=== PATIENT | male | born 1955 | race Caucasian/White ===

== ENCOUNTER 2017-06-02 21:30 | Inpatient (IN) ==
[2017-06-02] MEDS ORDERED: NS 1,000 ML IV ONE (21:57)
[2017-06-02] MEDS ORDERED: KETOROLAC 30 MG/ML INJECTION IVP ONE (21:57)
[2017-06-02] MEDS ORDERED: ONDANSETRON 4 MG/2 ML INJECTION IVP ONE (21:57)
--- NOTE | 2017-06-02 22:01 | Emergency Department Report ---
General Adult HPI - General Chief complaint: Fever Stated complaint: Fever/Keep Falling Asleep Time Seen by Provider: 06/02/17 21:32 Source: patient, family Mode of arrival: ambulatory Limitations: no limitations - History of Present Illness HPI narrative: Patient has had 6 days of on and off fevers up to 101 at home, diffuse headache , waxing and waning nausea, and generalized low back pain. Patient has also noticed a reddish/or injection discoloration to the urine initially, but now appears brown. Seen by his primary provider at the clinic, and although his initial CBC, BMP, and UA were essentially normal, patient was started on Levaquin but was uncertain why he was started on this. Patient has not taken any medication for fever or pain, nor has he had anything for nausea. Tonight the patient's symptoms seemed worse, so he came to the ER. Patient has a known history of congestive heart failure, is on diuretics, has atrial fibrillation, and is scheduled for a pacemaker placement sometime in the coming months. - Related Data Home Medications Medication Instructions Recorded Confirmed Budesonide/Formoterol Fumarate 6 gm IH BID #0 04/28/10 (Symbicort 160/4.5 Mcg Inhaler) Ipratropium/Albuterol Sulfate 90 mcg IH QID #0 NS 04/28/10 (Combivent Inhaler) Albuterol Sulfate [Ventolin Hfa] 1 puff ORAL INH Q4H PRN #0 inhaler 12/09/16 Aspirin [Aspir 81] 1 tab PO DAILY #30 tab 12/09/16 Ipratropium/Albuterol Sulfate 2 puff PO BID #0 inhaler 12/09/16 [Combivent Respimat Inhal [place]] duloxetine 60 mg capsule,delayed PO 30 Days 04/13/17 release fluticasone 50 mcg/actuation nasal 2 spray INTRANASAL BID 04/17/17 spray,suspension lisinopril 20 mg tablet 20 mg PO DAILY #0 tab 04/17/17 albuterol sulfate HFA 90 2 puff INH Q4H g 05/28/17 mcg/actuation aerosol inhaler aspirin 81 mg tablet,delayed 81 mg PO DAILY tab 05/28/17 release budesonide-formoterol HFA 80 2 inh INH BID 05/28/17 mcg-4.5 mcg/actuation aerosol inhaler carvedilol 3.125 mg tablet 3.125 mg PO BID 05/28/17 celecoxib 200 mg capsule 200 mg PO BID 30 Days 05/28/17 duloxetine 60 mg capsule,delayed PO 30 Days 05/28/17 release furosemide 40 mg tablet 40 mg PO BID 30 Days 05/28/17 linagliptin 5 mg tablet 5 mg PO DAILY tab 05/28/17 lisinopril 20 mg tablet 20 mg PO DAILY 30 Days 05/28/17 metformin 500 mg tablet 500 mg PO DAILY 30 Days 05/28/17 methocarbamol 750 mg tablet 750 mg PO DAILY 30 Days 05/28/17 potassium chloride ER 20 mEq PO 30 Days 05/28/17 tablet,extended release(part/cryst) rivaroxaban 20 mg tablet 20 mg PO DAILY 30 Days 05/28/17 Previous Rx's Medication Instructions Recorded Flecainide Acetate 50 mg PO Q12HR 30 Days 12/10/16 furosemide 40 mg tablet 40 mg PO BID #180 tab 04/15/17 metformin 500 mg tablet 500 mg PO BID #180 tab 04/17/17 methocarbamol 750 mg tablet 750 mg PO TID #90 tab 04/17/17 linagliptin 5 mg tablet 5 mg PO QAM #30 tab 04/29/17 potassium chloride ER 20 mEq 20 meq PO BID #180 tab 05/21/17 tablet,extended release rivaroxaban 20 mg tablet 20 mg PO DAILY #30 tab 05/21/17 levofloxacin 500 mg tablet 500 mg PO Q24H 10 Days 05/28/17 Allergies Allergy/AdvReac Type Severity Reaction Status Date / Time Penicillins Allergy Unknown Verified 06/02/17 21:46 cephalexin [From Keflex] Allergy Verified 05/28/17 14:35 Review of Systems All systems: reviewed and negative except as stated PFSH Patient Stated Medical History Cardiac Arrhythmia Yes: HX OF A.FIB Hypertension Yes Chronic Obstructive Pulmonary Yes Disease (COPD) Diabetes Mellitus Type 2 Yes: [facility] Medical History (Last Updated 06/01/17 @ 12:09 by Angela Ceron) Atrial fibrillation (Chronic Medical ~2011) Diabetes (Chronic Medical) Diabetes mellitus (Chronic Medical ~2006) Morbid obesity with BMI of 50.0-59.9, adult (Chronic Medical) Obesity (Chronic Medical) Congestive heart failure, ejection fraction 30% Surgical History: L2-L5 decompression [id number] Family History: Family History Mother , age 71 Lung cancer Father Diabetes - Social History Smoking status: Former smoker Physical Exam - Limitations Limitations: no limitations - General General appearance: alert - Normal Exams: Head:: Normocephalic without trauma Eyes:: Pupils are PERRLA w/ EOMI, No scleral icterus, irritation, or foreign bodies noted ENMT:: No facial trauma, nasal exudates, pharyngeal erythema, or exudates are noted Neck:: Full range of motion, without adenopathy, JVD, bruits or thyromegaly Cardiovascular:: Regular rate and rhythm, without murmur or gallop, Pulses 2+ all extremities, capillary refill, <2 seconds all extremities Abdomen:: Bowel sounds positive, soft, non-tender, non-distended, no hepatosplenomegaly, masses or bruits noted Musculoskeletal:: No tenderness, or deformity noted, good range of motion, all extremities Integumentary:: No rashes, hives, or bruising noted, hair and nails, without abnormality Neurological:: Patient is alert, and oriented, cranial nerves, motor/sensory/ cerebellar, exams w/o gross deficits, to observation Psychiatric:: Patient exhibits, appropriate attention, emotion and affect - Chest Chest inspection: Present: normal inspection, symmetric chest wall rise. Absent : tenderness, abscess - Respiratory Respiratory exam: Present: wheezes. Absent: normal lung sounds bilaterally ( wheezes bilaterally), respiratory distress - Abdominal Exam Abdominal exam: Present: soft. Absent: distention, tenderness, guarding, rebound - Other Other exam information: Patient had moderate 2-3+ pitting edema of lower extremities, which she says is chronic. Patient also has one plus pitting edema of the abdominal pannus. Again patient says that these findings are chronic Course Vital Signs Temperature 100.4 F 06/02/17 21:36 Pulse Rate 85 06/02/17 21:36 Respiratory Rate 24 06/02/17 21:36 Blood Pressure 149/78 H 06/02/17 21:36 Pulse Oximetry 95 06/02/17 21:36 Temperature 100.4 F 06/02/17 21:36 Pulse Rate 85 06/02/17 23:13 Respiratory Rate 18 06/02/17 23:13 Blood Pressure 95/51 06/02/17 23:13 Pulse Oximetry 91 06/02/17 23:13 Medical Decision Making - MDM Narrative Medical decision making narrative: UA - essentially normal CBC - mildly elevated white blood cell count with 9% bandemia, elevated CMP - normal Lactate - elevated 3.1 ProCalcitonin - normal Patient is given 1 L normal saline IV fluid bolus, Toradol 30 mg, and Zofran 4 mg IV - feeling better Chest x-ray does not show any clear source of infection Again patient has completely normal neurologic exam with no meningeal signs whatsoever. Patient is discussed with Dr. Hitesh Gonzales, we will start the patient on sepsis protocol with 2 g Rocephin in the ER, blood cultures are drawn, and patient will be admitted to medical telemetry - Lab Data Result diagrams: 06/02/17 22:10 06/02/17 22:10 Lab Results 06/02/17 06/02/17 06/02/17 Range/Units 22:02 22:10 22:10 WBC 8.2 (4.5-11.0) T/MM3 RBC 3.96 L (4.50-5.90) M/MM3 Hgb 12.4 L (13.5-17.5) GM/DL Hct 37.4 L (41-53) % MCV 94.4 (80-100) UM3 MCH 31.3 (26-34) UUG MCHC 33.2 (31-37) GM/DL RDW Std Deviation 50.3 H (36.9-50.2) FL Plt Count 185 (130-400) T/MM3 MPV 11.0 (9.4-12.4) UM3 Immature Gran % (Auto) Not performed Neut % (Auto) Not performed Lymph % (Auto) Not performed [place] % (Auto) Not performed Eos % (Auto) Not performed Baso % (Auto) Not performed Neut # Not performed Lymph # Not performed [place] # Not performed Eos # Not performed Baso # Not performed Abs Immat Gran (auto) Not performed Neutrophils % (Manual) 41.0 (33-66) % Band Neutrophils % 9.0 H (0-6) % Lymphocytes % (Manual) 23.0 (23-45) % Reactive Lymphs % 5.0 H (0-0) % Monocytes % (Manual) 18.0 H (0-9.0) % Eosinophils % (Manual) 1.0 (0-4) % Metamyelocytes % 3.0 H (0-0) % Neutrophils # (Manual) 3.4 (1.8-7.7) T/MM3 Band Neutrophils # 0.7 T/MM3 Lymphocytes # (Manual) 1.9 (1-4.8) T/MM3 Abs React Lymphs (Man) 0.4 H (0-0) T/MM3 Monocytes # (Manual) 1.5 H (0-0.8) T/MM3 Eosinophils # (Manual) 0.1 (0-0.5) T/MM3 Metamyelocytes # 0.2 T/MM3 Anisocytosis 1+ RBC Morph Comment Abnormal Turbidity < 20 (0-20) Sodium 136 (134-144) MEQ/L Potassium 4.4 (3.6-5) MEQ/L Chloride 100 (98-107) MEQ/L Carbon Dioxide 25 (22-30) MEQ/L Anion Gap 11 (5-15) MEQ/L BUN 16.0 (9-20) MG/DL Creatinine 0.9 (0.8-1.5) MG/DL GFR Calculation 86 BUN/Creatinine Ratio 18 (6-26) RATIO Glucose 187 H (75-110) MG/DL Calculated Osmolality 268 (261-280) MOSM/KG Calcium 9.0 (8.4-10.2) MG/DL Total Bilirubin 1.20 (0.20-1.30) MG/DL Conjugated Bilirubin 0.00 (0.00-0.30) MG/DL Unconjugated Bilirubin 0.70 (0.00-11.10) MG/DL Icterus Index < 2 (0-7) AST 57 (17-59) U/L ALT 66 (21-72) U/L Alkaline Phosphatase 61 (38-126) U/L B-Natriuretic Peptide 702 H (0-175) pg/mL Total Protein 6.6 (6.3-8.2) G/DL Albumin 3.7 (3.5-5.0) G/DL Globulin 2.9 (2.4-3.6) G/DL Albumin/Globulin Ratio 1.3 (1.1-2.2) RATIO Plasma Lactate 3.1 H (0.6-2.2) MMOL/L Procalcitonin NG/ML Specimen Hemolysis < 15 (0-25) Ur Collection Type Not provided Urine Color Yellow (YELLOW) Urine Clarity Clear Urine pH 6.0 (5.0-8.0) Ur Specific [place] 1.020 (1.015-1.025) Urine Protein Trace A (NEGATIVE) Urine Glucose (UA) Negative (NEGATIVE) Urine Ketones Negative (NEGATIVE) Urine Occult Blood Negative (NEGATIVE) Urine Nitrate Negative (NEGATIVE) Urine Bilirubin Negative (NEGATIVE) Urine Urobilinogen 1.0 (NORMAL) EU/DL Ur Leukocyte Esterase Negative (NEGATIVE) Urine RBC 0-1 (0-3) /HPF Urine WBC 1-3 (0-5) /HPF Ur Squamous Epith Cells 5-10 Urine Bacteria 1+ H (NEGATIVE) Hyaline Casts 0-1 /LPF Ur Culture Indicated? Cult not indicated 06/02/17 Range/Units 22:10 WBC (4.5-11.0) T/MM3 RBC (4.50-5.90) M/MM3 Hgb (13.5-17.5) GM/DL Hct (41-53) % MCV (80-100) UM3 MCH (26-34) UUG MCHC (31-37) GM/DL RDW Std Deviation (36.9-50.2) FL Plt Count (130-400) T/MM3 MPV (9.4-12.4) UM3 Immature Gran % (Auto) Neut % (Auto) Lymph % (Auto) [place] % (Auto) Eos % (Auto) Baso % (Auto) Neut # Lymph # [place] # Eos # Baso # Abs Immat Gran (auto) Neutrophils % (Manual) (33-66) % Band Neutrophils % (0-6) % Lymphocytes % (Manual) (23-45) % Reactive Lymphs % (0-0) % Monocytes % (Manual) (0-9.0) % Eosinophils % (Manual) (0-4) % Metamyelocytes % (0-0) % Neutrophils # (Manual) (1.8-7.7) T/MM3 Band Neutrophils # T/MM3 Lymphocytes # (Manual) (1-4.8) T/MM3 Abs React Lymphs (Man) (0-0) T/MM3 Monocytes # (Manual) (0-0.8) T/MM3 Eosinophils # (Manual) (0-0.5) T/MM3 Metamyelocytes # T/MM3 Anisocytosis RBC Morph Comment Turbidity (0-20) Sodium (134-144) MEQ/L Potassium (3.6-5) MEQ/L Chloride (98-107) MEQ/L Carbon Dioxide (22-30) MEQ/L Anion Gap (5-15) MEQ/L BUN (9-20) MG/DL Creatinine (0.8-1.5) MG/DL GFR Calculation BUN/Creatinine Ratio (6-26) RATIO Glucose (75-110) MG/DL Calculated Osmolality (261-280) MOSM/KG Calcium (8.4-10.2) MG/DL Total Bilirubin (0.20-1.30) MG/DL Conjugated Bilirubin (0.00-0.30) MG/DL Unconjugated Bilirubin (0.00-11.10) MG/DL Icterus Index (0-7) AST (17-59) U/L ALT (21-72) U/L Alkaline Phosphatase (38-126) U/L B-Natriuretic Peptide (0-175) pg/mL Total Protein (6.3-8.2) G/DL Albumin (3.5-5.0) G/DL Globulin (2.4-3.6) G/DL Albumin/Globulin Ratio (1.1-2.2) RATIO Plasma Lactate (0.6-2.2) MMOL/L Procalcitonin 0.27 NG/ML Specimen Hemolysis (0-25) Ur Collection Type Urine Color (YELLOW) Urine Clarity Urine pH (5.0-8.0) Ur Specific [place] (1.015-1.025) Urine Protein (NEGATIVE) Urine Glucose (UA) (NEGATIVE) Urine Ketones (NEGATIVE) Urine Occult Blood (NEGATIVE) Urine Nitrate (NEGATIVE) Urine Bilirubin (NEGATIVE) Urine Urobilinogen (NORMAL) EU/DL Ur Leukocyte Esterase (NEGATIVE) Urine RBC (0-3) /HPF Urine WBC (0-5) /HPF Ur Squamous Epith Cells Urine Bacteria (NEGATIVE) Hyaline Casts /LPF Ur Culture Indicated? Disposition Clinical Impression: Sepsis Qualifiers: Sepsis type: sepsis due to unspecified organism Qualified Code(s): A41.9 - Sepsis, unspecified organism [place] [facility] [place]: Improved Prescriptions: No Action Ipratropium/Albuterol Sulfate [Combivent Respimat Inhal [place]] 2 puff PO BID #0 inhaler Albuterol Sulfate [Ventolin Hfa] 1 puff ORAL INH Q4H PRN #0 inhaler PRN Reason: SHORTNESS OF AIR/WHEEZING Budesonide/Formoterol Fumarate (Symbicort 160/4.5 Mcg Inhaler) 6 gm IH BID # 0 Ipratropium/Albuterol Sulfate (Combivent Inhaler) 90 mcg IH QID #0 NS Aspirin [Aspir 81] 1 tab PO DAILY #30 tab Flecainide Acetate 50 mg PO Q12HR 30 Days linagliptin 5 mg tablet 5 mg PO QAM #30 tab potassium chloride ER 20 mEq tablet,extended release 20 meq PO BID #180 tab rivaroxaban 20 mg tablet 20 mg PO DAILY 30 Days potassium chloride ER 20 mEq tablet,extended release(part/cryst) PO 30 Days furosemide 40 mg tablet 40 mg PO BID 30 Days metformin 500 mg tablet 500 mg PO DAILY 30 Days lisinopril 20 mg tablet 20 mg PO DAILY 30 Days aspirin 81 mg tablet,delayed release 81 mg PO DAILY tab methocarbamol 750 mg tablet 750 mg PO DAILY 30 Days duloxetine 60 mg capsule,delayed release PO 30 Days albuterol sulfate HFA 90 mcg/actuation aerosol inhaler 2 puff INH Q4H g linagliptin 5 mg tablet 5 mg PO DAILY tab budesonide-formoterol HFA 80 mcg-4.5 mcg/actuation aerosol inhaler 2 inh INH BID rivaroxaban 20 mg tablet 20 mg PO DAILY #30 tab celecoxib 200 mg capsule 200 mg PO BID 30 Days carvedilol 3.125 mg tablet 3.125 mg PO BID levofloxacin 500 mg tablet 500 mg PO Q24H 10 Days Referrals: Stacy Isbell PA [Family Provider] - - Seen By: physician
[2017-06-02] MEDS: SALINE FLUSH 10ml SYRINGE IVF PRN (22:14)
[2017-06-02] MEDS ORDERED: CEFTRIAXONE 2 GM in NS 100 ML IV ONE (23:26)
[2017-06-03] MEDS ORDERED: AZTREONAM IV SCH (00:19)
[2017-06-03] MEDS ORDERED: ONDANSETRON 4 MG/2 ML INJECTION IVP PRN (00:19)
[2017-06-03] MEDS ORDERED: ACETAMINOPHEN 325 MG TABLET PO PRN (00:19)
[2017-06-03] MEDS ORDERED: CEFTRIAXONE 2 GM in NS 100 ML IV SCH (00:19)
[2017-06-03] MEDS ORDERED: HYDROCODONE/APAP 5mg/325mg TABLET PO PRN (00:19)
[2017-06-03] MEDS ORDERED: HYDROMORPHONE 2 MG/ML INJECTION IVP PRN (00:19)
[2017-06-03] MEDS ORDERED: NS IV SCH (00:19)
--- NOTE | 2017-06-03 00:32 | History & Physical Report ---
<Hitesh Gonzales - Last Filed: 06/03/17 00:28> History of Present Illness Date: 06/03/17 Chief complaint: i don't feel well HPI: This is a 61 y/o male who has a history of DM 2 and COPD. The patient had onset this past of headache, fever, chills and sweats with weakness. He presented to his PCP office and referred to the ED where his workup was non specific. he was started on Levaquin and discharged back to home. Since the past 5 days the patient continues to be weak with intermittent headache , fever, chills and sweats. The patient has not improved with Levaquin therapy. The patient presents to the ED where he continues with a leukocytosis and now bandemia. The patient's LA is elevated. CXR is unremarkable for acute illness and his ROS would inform not much pulmonary complatins. The patient does describe some dysuria for the past 5 days but UA in the ED was mostly c/w contaminated urine. The patient denies any skin rashes or area of break down. The patient denies change in vision, no ear pain, no congestion, no sores in his mouth, no sore throat, The pateint has an occasional non productive cough. The pateint has nausea without emesis. He denies abdoemn pain, He has some constipation, He has no other signs of symptoms to give clue to his ongoing infectious process. Because of DINERO and fever he will be admitted and started on SAILING OFFICER antibitoics. With his history of atrial fib he is anticoagulated? He is not a candidate for an immediate LP. see below. Review of Systems Review of systems: very carefully outlilned in HPI and otherwise negative. [facility] Medical History (Last Updated 06/02/17 @ 23:31 by Trever Beck MD) Atrial fibrillation (Chronic Medical ~2011) Diabetes (Chronic Medical) Diabetes mellitus (Chronic Medical ~2006) Morbid obesity with BMI of 50.0-59.9, adult (Chronic Medical) Obesity (Chronic Medical) Surgical History: L2-L5 decompression [id number] Family History: Family History Mother , age 71 Lung cancer Father Diabetes - Social History Smoking status: Former smoker Substance use type: does not use Alcohol intake frequency: a few times a week Housing: house Household members: spouse Current occupational status: employed Current occupational exposures/hazards: No Medications Home Medications Medication Instructions Recorded Confirmed Type Ipratropium/Albuterol Sulfate 2 puff PO BID #0 inhaler 12/09/16 06/03/17 History [Combivent Respimat Inhal Central] albuterol sulfate HFA 90 2 puff INH Q4H g 05/28/17 06/03/17 History mcg/actuation aerosol inhaler aspirin 81 mg tablet,delayed 81 mg PO DAILY tab 05/28/17 06/03/17 History release budesonide-formoterol HFA 80 2 inh INH BID 05/28/17 06/03/17 History mcg-4.5 mcg/actuation aerosol inhaler celecoxib 200 mg capsule 200 mg PO BID 30 Days 05/28/17 06/03/17 History duloxetine 60 mg capsule,delayed 60 mg PO DAILY 30 Days 05/28/17 06/03/17 History release furosemide 40 mg tablet 40 mg PO BID 30 Days 05/28/17 06/03/17 History linagliptin 5 mg tablet 5 mg PO DAILY tab 05/28/17 06/03/17 History lisinopril 20 mg tablet 20 mg PO DAILY 30 Days 05/28/17 06/03/17 History metformin 500 mg tablet 500 mg PO DAILY 30 Days 05/28/17 06/03/17 History methocarbamol 750 mg tablet 750 mg PO DAILY 30 Days 05/28/17 06/03/17 History potassium chloride ER 20 mEq 20 meq PO BID 30 Days 05/28/17 06/03/17 History tablet,extended release(part/cryst) rivaroxaban 20 mg tablet 20 mg PO DAILY 30 Days 05/28/17 06/03/17 History Allergies Allergy/AdvReac Type Severity Reaction Status Date / Time Penicillins Allergy Unknown Verified 06/03/17 01:34 cephalexin [From Keflex] Allergy Verified 06/03/17 01:34 Exam Vital Signs: Temperature 98.8 F 06/03/17 00:19 Pulse Rate 88 06/03/17 00:19 Respiratory Rate 20 06/03/17 00:19 Blood Pressure 118/61 06/03/17 00:19 Pulse Oximetry 91 06/03/17 00:19 Oxygen Delivery Method Room Air Telemetry Rhythm: Sinus Rhythm Height: 1.88 m Weight: 184.1 kg Comments: well developed, well nourished male mild to mod obese in mild distress, alert and oriented x 4 - Constitutional Present: mild distress, well nourished, well developed, obese, cooperative - Routine HEENT Exam Head: Present: normocephalic, atraumatic Eye: Present: EOMI, conjunctivae pink. Absent: scleral injection ENT: Present: mucous membranes moist - Routine Neck Exam Present: supple, full ROM Comments: patient observed to move head without any evidence of nuchal rigidity - Routine Respiratory Exam Present: CTA bilaterally - Routine Cardiovascular Exam Present: RRR, no murmur - Routine Abdominal Exam Present: soft, non distended, non tender - Routine Extremities Exam Present: no edema, full ROM - Routine Back/Spine/Pelvis Exam Back/Spine: Present: full ROM - Routine Skin Exam Present: intact Comments: note that patient is obese he has chronic statis changes in his legs. patient denies any skin issues but he has not yet been disrobbed. nursing to [facility] assess and notify regarding any findings. (clinic note raised ? of folliculitis ). - Routine Neurological Exam Present: alert, oriented X3, CN II-XII intact, moving all extremities, normal tone, vision grossly intact, hearing grossly intact. Absent: motor deficit, altered mental status - Routine Psychiatric Exam Present: normal affect Results - Labs CBC & Chem 7: 06/02/17 22:10 06/02/17 22:10 - Imaging and Cardiology Chest x-ray Additional comments: no acute process Assessment and Plan (1) Severe sepsis Current visit: Yes Status: Acute 06/03/17 00:42 patient is febrile, with tachycardia and leukocytosis and elevated LA. At this time will admit and start emperic treatment. see below 2 l of NS (hx of non ischemic cardiomyopathy and as such not interested in the full 30 cc/kg fluid challenge). cycle LA. repeat labs in am (2) Febrile illness, acute Current visit: Yes Status: Acute 06/03/17 00:44 currently no obvious source. await skin exam by nursing . followup with on site MD tomorrow to [facility] assess. DINERO appreciated, but no sinus symtpoms, no HEENT sx except for DINERO. ocasional cough, no abd pain dysuria reported but urine is mostly contaminated and as such not an obvious source. Because of persistent DINERO and fever will cover with SAILING OFFICER empericaly. Because of ceph and pcn allergy will cover with vanco and aztreonam. Note Zayas also r/c iv bactrim but will not go there yet. Careful reassessment in am. Note if not clear will need to do CT chest abd and pelvis to rule outoccult proces (3) DM type 2 (diabetes mellitus, type 2) Current visit: Yes Status: Acute 06/03/17 00:46 hold all current agents. correctional plan, adjust as indicated (4) COPD (chronic obstructive pulmonary disease) Current visit: Yes Status: Acute 06/03/17 00:46 not exacerbated. duoneb and albuterol prn. (5) Atrial fibrillation Current visit: Yes Status: Acute 06/03/17 00:47 sounds sinus currently. need to do med rec efra. possibly on xaralto? monitor on tele. patient is on b jimi and ? flecanide. again without good med rec not able to comment further. will have to hold b jimi with boarderline pressures. (6) Cardiomyopathy Current visit: Yes Status: Acute 06/03/17 00:49 will hold diuretic therapy. fluid challenge has been provided. monitor for signs of failure. not sure is ischemic vs non ischemic DVT Prophylaxis: SCD's, Xarelto Resuscitation Status: Full Code Hospital Course Summary Disclaimer: The visit summary below is not to be considered part of the above Progress Note. <Sabrina Hogue - Last Filed: 06/03/17 13:49> History of Present Illness Date: 06/03/17 [facility] Patient Stated Medical History Cardiac Arrhythmia Yes: HX OF A.FIB Congestive Heart Failure Yes Hypertension Yes Myocardial Infarction Yes: Patient states Dr told him. Chronic Obstructive Pulmonary Yes Disease (COPD) Sleep Apnea Yes Diabetes Mellitus Type 2 Yes: [facility] Depression Yes Clinic Medical History (Last Updated 06/03/17 @ 00:50 by Hitesh Gonzales MD) Atrial fibrillation (Chronic Medical ~2011) Diabetes (Chronic Medical) Diabetes mellitus (Chronic Medical ~2006) Morbid obesity with BMI of 50.0-59.9, adult (Chronic Medical) Obesity (Chronic Medical) Family History: Family History Mother , age 71 Lung cancer Father Diabetes Exam Vital Signs: Temperature 96.6 F L 06/03/17 08:17 Pulse Rate 90 06/03/17 08:17 Respiratory Rate 24 06/03/17 08:17 Blood Pressure 112/57 06/03/17 08:17 Pulse Oximetry 94 06/03/17 08:17 Oxygen Delivery Method Room Air Height: 1.88 m Weight: 187 kg Results - Labs CBC & Chem 7: 06/03/17 04:31 06/03/17 04:31 Assessment and Plan (1) Severe sepsis Current visit: Yes Status: Acute (2) Febrile illness, acute Current visit: Yes Status: Acute (3) DM type 2 (diabetes mellitus, type 2) Current visit: Yes Status: Acute (4) COPD (chronic obstructive pulmonary disease) Current visit: Yes Status: Acute (5) Atrial fibrillation Current visit: Yes Status: Acute (6) Cardiomyopathy Current visit: Yes Status: Acute Assessment and Plan: Dr. Gonzales's note reviewed. Mr. Oh interviewed and examined. Patient's provided supplemental history. CC: Fever/fatigue HPI: Mr. Oh a 61-year-old male with recent diagnosis of nonischemic cardiomyopathy. For 10-14 days the patient reports having excess fatigue, nausea , headaches, fever, and intermittent blurring of vision. This is been accompanied by dizziness, sweats, and chills. His reports fever has been up to 101.6 and fevers usually are worse in the afternoon. He's appeared flushed and often feels hot even though his temperature is normal when checked. The patient describes increasing dyspnea and particularly increasing exertional dyspnea. He is now limited to walking from one room to another due to shortness of breath and his reports it takes him forever to do so. He was seen by Elif Dixon a week ago at the [facility] office at which time temperature was 101 and he simply described not feeling well with swelling of his right hand, dark orange urine, and development of some welts on his legs. White count was 7.2 with unremarkable differential and chemistries were normal. Urinalysis was unremarkable. The patient was treated with Levaquin and Claritin. Since that time no real changes been noted other than increasing fatigue and worsening weakness especially involving the lower extremities. Swelling in the right hand is resolved and he's no longer aware of any welts. His reports some small sores on his abdomen. He denies cough or sputum production, has no urinary frequency/urgency but reports occasional dysuria. He denies abdominal pain or nausea but reports decreased appetite. Patient reports course of steroids associated with COPD exacerbation several weeks ago-appears to have been in early April per ER records. He denies nasal congestion, sinus drainage, sore throat. Headache is largely frontal and without diplopia. Visual blurring occurs while seated or standing. Temperature on arrival in the emergency room was 100.4, chest x-ray was unremarkable, and white count normal although 9% bands were present. Lactic acid was elevated at 3.1 and the patient was admitted with fever of undetermined origin and severe sepsis. The patient has had no recent travel, denies known tick exposure but has worked out in the yard, they have 1 dog. No family members have been ill. PH/SH/FH: agree with that recorded above with additions to past history as below : Paroxysmal atrial fibrillation Diabetes mellitus, without complications, without insulin-A1c 9.3 on 04/29/17 Morbid obesity Chronic systolic CHF-echocardiogram recently with ejection fraction 30%, Dr. Sal Hypertension History of PE/DVT Obstructive sleep apnea-uses CPAP COPD DJD Depression History nephrolithiasis L2-L5 decompressive laminectomy 2016 Cystoscopy Appendectomy Right knee arthroscopy Right shoulder rotator cuff repair FH as noted by Dr. Gonzales SH as noted by Dr. Gonzales, the patient's is his DPOA/alternate decision maker ; Dr. Wiggins and Stacy Cotto or his usual caregivers, Dr. Tulio Sal is his ophthalmic dispenser, and the patient is a full code. ROS: 10 point review as per history of present illness or negative. Only addition to being noted as the patient had a recent cardiac catheterization per Dr. Sal and patient was advised that there were no blockages. Echocardiogram subsequently revealed ejection fraction of 30% and carvedilol was started on 05/18. EXAM: General-obese male, NAD, appears fatigued HEENT-PERRL, EOMI without nystagmus, conjunctiva clear, sclera anicteric, conjugate gaze, facial structures symmetric, oropharynx clear, neck thick, supple and without adenopathy in anterior or posterior cervical chains; no supraclavicular adenopathy palpated. Temporal arteries nontender. Lungs-respirations nonlabored, decreased airflow throughout, breath sounds clear Cardiac-regular rhythm, S1-S2-heart tones diminished Abd-soft, nontender, no palpable mass, bowel sounds diminished but present Ext-+1-2 pitting edema bilateral lower extremities, no edema in the hands, no cyanosis Skin-stasis changes bilateral lower extremities, no welts or other generalized rash present, minor folliculitis on the abdominal wall and some bruising under the abdominal pannus, small superficial abrasions proximal left crabtree and at the great toe on the right-no adjacent inflammation Neuro-cranial nerves 3-12 intact, motor tone normal, power 4+/5 throughout with suggestion of mild proximal weakness but no drift of the upper extremities, sensation intact to light touch and cold 4 extremities, no tremors Psych-flat affect, fatigued, calm, cooperative DATA: Chest x-ray reviewed by myself demonstrating normal-sized heart and no focal infiltrate or heart failure. Telemetry strips from overnight reviewed by myself demonstrating sinus rhythm with occasional PVCs. Current and recent outpatient labs reviewed-notable for current white counts of 8.2/7.4 with 9% bands on admission, 11% bands this morning. Hemoglobin slightly depressed at 12.4. Electrolytes unremarkable except magnesium 1.5 this morning, liver enzymes normal, proBNP 702, urinalysis negative. A/P: Severe sepsis Fever unknown origin Fatigue Headache Hypomagnesemia Normocytic anemia Paroxysmal atrial fibrillation-in sinus rhythm Diabetes mellitus, without complications, without insulin-A1c 9.3 on 04/29/17 Chronic systolic CHF/nonischemic cardiomyopathy-echocardiogram recently with ejection fraction 30% Hypertension, essential History of PE/DVT Obstructive sleep apnea-uses CPAP COPD DJD Depression Blood cultures obtained in the emergency room, negative overnight. Obtain respiratory viral panel and tick-exposure panel. Add doxycycline empirically as the patient's reports ticks in the yard. Continue vancomycin/aztreonam ( pen allergic) for sepsis of unknown origin pending further data. Minor folliculitis on abdominal wall, nothing that appears particularly inflamed or likely to be source of systemic infection. No active synovitis or generalized rash. May need further evaluation for possible rheumatologic/noninfectious causes of fever. Magnesium replaced with 2 g mag sulfate IV, reassess in a.m. PT/OT consults Continue flecainide/Xarelto due to underlying cardiac arrhythmia and history DVT /PE. Resume Tradjenta in conjunction with corrective scale insulin, monitor blood sugars-metformin remains on hold. Continue low-volume fluid replacement but will switch to normal saline without D5 to avoid hyperglycemia. Continue carvedilol for cardiomyopathy, Lasix on hold at present. Old records reviewed, chest x-ray reviewed by myself, laboratory data reviewed, supplemental history provided by patient's . Sepsis Assessment - Evaluation Possible source: unknown SIRS Criteria: temperature > or equal to 100.4, pulse > or equal to 90 beats/ minute, Bands > or equal to 10%, plasma CRP >2 above normal, RR > or equal to 20 Severe Sepsis: lactate > or equal to 2.0 mg/dl Hospital Course Summary Disclaimer: The visit summary below is not to be considered part of the above Progress Note. Hospital Course: 06/03/17 13:47 Patient hospitalized with 10-14 day history of fever, nausea, headache, generalized weakness, and fatigue. Meets criteria for severe sepsis, lactic acid 3.1 on admission. Chest x-ray/UA unremarkable. Blood cultures obtained and empirically treated with vancomycin and aztreonam for sepsis of unknown origin. Additional studies being obtained including respiratory viral panel and panel for tick associated illnesses. Doxycycline added empirically. Home medications being continued for cardiac disease although Lasix remains on hold while patient is being hydrated.
[2017-06-03] MEDS ORDERED: ALBUTEROL 2.5mg/3ml (0.083%) NEB AEROSOL PRN (00:50)
[2017-06-03] MEDS: D5-1/2NS 1,000 ML IV SCH (01:02)
[2017-06-03] MEDS: ALBUTEROL/IPRATROPIUM 2.5mg-0.5mg/3ml NEB AEROSOL SCH ×3 (01:05→20:46)
[2017-06-03] MEDS: INSULIN ASPART 100unit/ml INJECTION SQ PRN ×4 (06:44→21:31)
--- NOTE | 2017-06-03 08:09 | XRay Report ---
INDICATION: sepsis of unknown origin PROCEDURE: CHEST 2-VIEWS UPRIGHT (PA & LAT) Encounter: Initial COMPARISON: April 15, 2017 FINDINGS: The lungs are clear without evidence of focal abnormal airspace opacity. There is no pleural effusion or pneumothorax. The heart size, mediastinal contours and pulmonary vascularity are stable. IMPRESSION: No acute cardiopulmonary disease. .
--- NOTE | 2017-06-03 09:51 | Pharmacy Consult-Antibiotics ---
Pharmacy Consult-Vancomycin - Laboratory Information WBC 7.4 T/MM3 (4.5-11.0) 06/03/17 04:31 BUN 19.0 MG/DL (9-20) 06/03/17 04:31 Creatinine 1.1 MG/DL (0.8-1.5) D 06/03/17 04:31 Procalcitonin 0.27 NG/ML 06/02/17 22:10 VANCOMYCIN CONSULT: Dx: Sepsis Current Renal Fx: SCr = 1.1 mg/dl. Est. CrCl ~ 99 mL/min. Will give Vancomycin 1,750 mg IV q8hrs. Will continue to monitor and adjust regimen to maintain therapeutic levels. Thank you, Jonas Alfred [facility].
[2017-06-03] MEDS: NS IV SCH ×3 (09:55→23:14)
[2017-06-03] MEDS: AZTREONAM IV SCH ×3 (09:55→23:14)
[2017-06-03] MEDS ORDERED: INHALER ASSIST DEVICE (Optichamber) MC ONE (12:15)
[2017-06-03] MEDS: FLECAINIDE 50 MG TABLET PO SCH ×2 (13:17→20:57)
[2017-06-03] MEDS: DULOXETINE 60 MG CAPSULE PO SCH (13:17)
[2017-06-03] MEDS: ASPIRIN *EC* 81 MG TABLET PO SCH (13:18)
[2017-06-03] MEDS: MAGNESIUM SULFATE 1gm PREMIX 1 GM/100 ML BAG IV SCH ×2 (13:18→14:43)
[2017-06-03 14:26] VITALS: BMI 52.9
[2017-06-03] MEDS: NS 1,000 ML IV SCH (15:56)
[2017-06-03] MEDS ORDERED: SENNA + DOCUSATE TABLET PO PRN (17:10)
[2017-06-03] MEDS: RIVAROXABAN 20 MG TABLET PO SCH (18:05)
[2017-06-03] MEDS: BUDESONIDE/FORMOTEROL 80/4.5mcg INHALER ORAL INH SCH (20:47)
[2017-06-03] MEDS: CELECOXIB 200 MG CAPSULE PO SCH (20:57)
[2017-06-04] MEDS: ALBUTEROL/IPRATROPIUM 2.5mg-0.5mg/3ml NEB AEROSOL SCH ×4 (03:16→20:53)
[2017-06-04] MEDS: NS IV SCH ×3 (06:27→19:09)
[2017-06-04] MEDS: AZTREONAM IV SCH ×3 (06:27→19:09)
[2017-06-04] MEDS: INSULIN ASPART 100unit/ml INJECTION SQ PRN ×4 (06:28→20:49)
[2017-06-04] MEDS: CELECOXIB 200 MG CAPSULE PO SCH ×2 (09:07→20:40)
[2017-06-04] MEDS: ASPIRIN *EC* 81 MG TABLET PO SCH (09:07)
[2017-06-04] MEDS: LISINOPRIL 20 MG TABLET PO SCH (09:07)
[2017-06-04] MEDS: DULOXETINE 60 MG CAPSULE PO SCH (09:07)
[2017-06-04] MEDS: METHOCARBAMOL 750 MG TABLET PO SCH (09:07)
[2017-06-04] MEDS ORDERED: SENNA + DOCUSATE TABLET PO PRN (09:25)
[2017-06-04] MEDS: POLYETHYL GLYCOL 3350 17gm PACKET PO SCH (09:28)
[2017-06-04] MEDS: CARVEDILOL 6.25 MG TABLET PO SCH ×2 (09:28→16:35)
[2017-06-04] MEDS: BUDESONIDE/FORMOTEROL 80/4.5mcg INHALER ORAL INH SCH ×2 (09:30→20:58)
--- NOTE | 2017-06-04 09:36 | Pharmacy Consult-Antibiotics ---
Pharmacy Consult-Vancomycin - Laboratory Information WBC 7.8 T/MM3 (4.5-11.0) 06/04/17 04:25 BUN 11.0 MG/DL (9-20) 06/04/17 04:25 Creatinine 0.8 MG/DL (0.8-1.5) D 06/04/17 04:25 Procalcitonin 0.27 NG/ML 06/02/17 22:10 Vancomycin Trough 13.38 UG/ML (15-20) L 06/04/17 07:58 Renal fx improved today from yesterday's SCr = 1.1mg/dl. Today's calculated CrCl > 100 ml/min Target Vancomycin Trough level = 15-20mcg/ml Will adjust regimen to VANCOMYCIN 2 gm IV q8hrs, starting with this am dose. Thank you
[2017-06-04] MEDS: FLECAINIDE 50 MG TABLET PO SCH (11:14)
[2017-06-04] MEDS: D5-1/2NS 1,000 ML IV SCH (11:15)
[2017-06-04] MEDS: NS 1,000 ML IV SCH (13:31)
--- NOTE | 2017-06-04 13:49 | Progress Note ---
<Kayley Wise - Last Filed: 06/04/17 14:36> Subjective: Patient seen in follow-up today sitting in his room. His main complaint is fatigue. Otherwise, he has no complaints other than he hasn't had a bowel movement in 2 days. He continues on IV aztreonam, doxycycline, and vancomycin. There has been no source of infection found thus far. He's been afebrile over the past 24 hours. Blood pressures have been stable. He's been mildly tachycardic over the past 24 hours, whereas after admission he was running in the 80s and 90s. He has no complaint of chest pain. No cough. He does have dyspnea on exertion, which she thinks started after he was started on the most recent cardiac medication by Dr. Sal. He is sleeping well and eating well. Objective Vital signs: Temperature 97.7 F 06/04/17 07:56 Pulse Rate 109 H 06/04/17 09:45 Respiratory Rate 16 06/04/17 11:13 Blood Pressure 145/66 H 06/04/17 09:45 Pulse Oximetry 97 06/04/17 11:13 Oxygen Delivery Method Room Air Weight: 189.4 kg - Constitutional Present: no acute distress, well nourished, well developed, morbidly obese - Routine HEENT Exam Head: Present: normocephalic, atraumatic Eye: Present: EOMI. Absent: conjunctival icterus ENT: Present: mucous membranes moist, nares patent - Routine Respiratory Exam Present: CTA bilaterally, distant breath sounds. Absent: wheezes - Routine Cardiovascular Exam Present: RRR (sounds are distant). Absent: murmur Comments: Frequent ectopic beats - Routine Abdominal Exam Present: soft, normoactive bowel sounds, non distended. Absent: tenderness - Routine Extremities Exam Present: edema (1-2 + bilateral), normal capillary refill - Routine Skin Exam Present: dry, warm Comments: Pigmentation changes to bilateral lower extremities - Routine Neurological Exam Present: alert, oriented X3, CN II-XII intact - Routine Lymphatic Exam Lymphatic: Absent: adenopathy - Routine Psychiatric Exam Present: normal affect, normal thought process Results - Labs CBC & Chem 7: 06/04/17 04:25 06/04/17 04:25 Assessment and Plan (1) Severe sepsis Current visit: Yes Status: Acute (2) Febrile illness, acute Current visit: Yes Status: Acute (3) DM type 2 (diabetes mellitus, type 2) Current visit: Yes Status: Acute (4) COPD (chronic obstructive pulmonary disease) Current visit: Yes Status: Acute (5) Atrial fibrillation Current visit: Yes Status: Acute (6) Cardiomyopathy Current visit: Yes Status: Acute Assessment and Plan: Assessment Severe sepsis Fever unknown origin Fatigue Headache Hypomagnesemia Normocytic anemia Paroxysmal atrial fibrillation-in sinus rhythm Diabetes mellitus, without complications, without insulin-A1c 9.3 on 04/29/17 Chronic systolic CHF/nonischemic cardiomyopathy-echocardiogram recently with ejection fraction 30% Hypertension, essential History of PE/DVT Obstructive sleep apnea-uses CPAP COPD DJD Depression Plan Continue IV antibiotics for sepsis of unknown origin. Tick panel and respiratory viral panel testing is pending. Will also check Monospot and West Nile screen given his overwhelming fatigue. Magnesium level has stabilized following IV replacement. Will follow. Blood sugars not to goal. Will restart metformin in the morning as he is eating and drinking well. Weight is up since admission. Consider restarting Lasix. IV fluids have been discontinued. Blood pressures are stable. Continue lisinopril 20 mg daily Continue Xarelto for paroxysmal A. fib. Noted to be intermittently tachycardic up into the 120s. Did review telemetry - appears to be sinus tachycardia with occasional PVCs. No atrial fib noted. Continue to monitor. Consider increasing carvedilol for increased rate control. Sepsis Assessment - Evaluation Sepsis screening result: No Definite Risk Hospital Course Summary Disclaimer: The visit summary below is not to be considered part of the above Progress Note. Hospital Course: 06/03/17 Patient hospitalized with 10-14 day history of fever, nausea, headache, generalized weakness, and fatigue. Meets criteria for severe sepsis, lactic acid 3.1 on admission. Chest x-ray/UA unremarkable. Blood cultures obtained and empirically treated with vancomycin and aztreonam for sepsis of unknown origin. Additional studies being obtained including respiratory viral panel and panel for tick associated illnesses. Doxycycline added empirically. Home medications being continued for cardiac disease although Lasix and metformin remain on hold while patient is being hydrated. 06/04/17 check Monospot and [place] Nile screen given his overwhelming fatigue. Blood sugars not to goal. Will restart metformin in the morning as he is eating and drinking well. Weight is up since admission. Consider restarting Lasix. IV fluids have been discontinued. Noted to be intermittently tachycardic up into the 120s. Reviewed telemetry - appears to be sinus tachycardia with occasional PVCs. No atrial fib noted. <Sabrina Hogue - Last Filed: 06/04/17 15:51> Objective Vital signs: Temperature 97.5 F 06/04/17 15:26 Pulse Rate 92 06/04/17 15:26 Respiratory Rate 20 06/04/17 15:26 Blood Pressure 110/65 06/04/17 15:26 Pulse Oximetry 94 06/04/17 15:26 Oxygen Delivery Method Room Air Results - Labs CBC & Chem 7: 06/04/17 04:25 06/04/17 04:25 Assessment and Plan (1) Severe sepsis Current visit: Yes Status: Acute (2) Febrile illness, acute Current visit: Yes Status: Acute (3) DM type 2 (diabetes mellitus, type 2) Current visit: Yes Status: Acute (4) COPD (chronic obstructive pulmonary disease) Current visit: Yes Status: Acute (5) Atrial fibrillation Current visit: Yes Status: Acute (6) Cardiomyopathy Problem details: EF30% Current visit: Yes Status: Acute Assessment and Plan: I have independently evaluated and examined this patient. I reviewed the chart, the patient's history, and the [employer]PER[employer]/PA's documented findings as above. We discussed and formulated the assessment and plan as above with additions as below: Ananda reports that he feels better overall today. He continues to have some minor nausea and is fatigued. He has a dull headache which is better than it's been. He complains of constipation today. There is residual visual blurring. He is not aware of any fever overnight and no elevated temperatures were recorded. Heart rate has been elevated as noted but the patient did not receive carvedilol yesterday as it was not included on his initial med rec. NAD, alert, lying flat in bed on my arrival Conjunctiva clear, sclera anicteric, oropharynx clear, neck supple Respirations nonlabored with decreased breath sounds throughout but no focal abnormalities/crackles/rhonchi Cardiac rhythm regular with low-grade tachycardia +1 lower extremity edema Minor folliculitis on abdominal wall as noted yesterday Respiratory viral panel negative; magnesium 1.7 Excellent by mouth intake-IV fluids discontinued, resume Lasix. Baseline weight reported to be about 405 pounds; currently at about 417 pounds. Add Mag-Ox 4 continued magnesium supplementation. Increase activity. Initial home medication list was incorrect-patient reports flecainide was discontinued recently and carvedilol initiated, corrected this morning. Suspect current tachycardia reflects being off of carvedilol yesterday. Reassess after home beta jimi resumed. Reassess chest x-ray in a.m.; telemetry reviewed by myself-SR/ST with occasional PVCs, one couplet overnight. Laboratory data reviewed. Medications reviewed with nursing. Hospital Course Summary Disclaimer: The visit summary below is not to be considered part of the above Progress Note.
[2017-06-04] MEDS ORDERED: MAGNESIUM OXIDE 400 MG TABLET PO SCH ×2 (15:48→21:00)
[2017-06-04] MEDS: FUROSEMIDE 40 MG TABLET PO SCH (16:35)
[2017-06-04] MEDS: RIVAROXABAN 20 MG TABLET PO SCH (16:35)
[2017-06-04] MEDS: SALINE FLUSH 10ml SYRINGE IVF PRN ×2 (16:36→20:40)
[2017-06-05] MEDS: NS IV SCH ×3 (00:21→12:08)
[2017-06-05] MEDS: AZTREONAM IV SCH ×3 (00:21→12:08)
[2017-06-05] MEDS: SALINE FLUSH 10ml SYRINGE IVF PRN (00:21)
[2017-06-05] MEDS: ALBUTEROL/IPRATROPIUM 2.5mg-0.5mg/3ml NEB AEROSOL SCH ×4 (03:25→18:44)
[2017-06-05] MEDS: INSULIN ASPART 100unit/ml INJECTION SQ PRN ×3 (06:26→21:44)
[2017-06-05] MEDS: BUDESONIDE/FORMOTEROL 80/4.5mcg INHALER ORAL INH SCH ×2 (07:24→18:44)
[2017-06-05] MEDS: FUROSEMIDE 40 MG TABLET PO SCH ×2 (08:23→14:53)
[2017-06-05] MEDS: METFORMIN 500 MG TABLET PO SCH (08:23)
[2017-06-05] MEDS: CARVEDILOL 6.25 MG TABLET PO SCH ×2 (08:24→16:53)
[2017-06-05] MEDS: CELECOXIB 200 MG CAPSULE PO SCH ×2 (08:24→21:10)
[2017-06-05] MEDS: METHOCARBAMOL 750 MG TABLET PO SCH (08:24)
[2017-06-05] MEDS: LISINOPRIL 20 MG TABLET PO SCH (08:24)
[2017-06-05] MEDS: ASPIRIN *EC* 81 MG TABLET PO SCH (08:24)
[2017-06-05] MEDS: POLYETHYL GLYCOL 3350 17gm PACKET PO SCH (08:24)
[2017-06-05] MEDS: DULOXETINE 60 MG CAPSULE PO SCH (08:24)
--- NOTE | 2017-06-05 08:34 | XRay Report ---
INDICATION: fever PROCEDURE: CHEST 2-VIEWS UPRIGHT (PA & LAT) Encounter: Initial COMPARISON: June 02, 2017 FINDINGS: The lungs are clear without evidence of focal abnormal airspace opacity. There is no pleural effusion or pneumothorax. The heart size, mediastinal contours and pulmonary vascularity are within normal limits. There is no significant skeletal abnormality. IMPRESSION: No acute cardiopulmonary disease. .
--- NOTE | 2017-06-05 10:23 | Progress Note ---
<Kayley Wise - Last Filed: 06/05/17 10:19> Subjective: Patient seen in follow-up resting in bed. Overall he reports feeling okay other than the continued significant fatigue. He states he's had "flushes" when he thought he might have a fever, but when it was checked it was normal. Highest documented temperature in the last 24 hours is 99.1. He had a bowel movement yesterday after his second dose of milk of magnesia. He's not having any chest pain or shortness of breath. Objective Vital signs: Temperature 99.1 F 06/05/17 07:51 Pulse Rate 98 06/05/17 07:51 Respiratory Rate 20 06/05/17 07:51 Blood Pressure 120/58 06/05/17 07:51 Pulse Oximetry 91 06/05/17 07:51 Oxygen Delivery Method Room Air Weight: 425 lb 11.402 oz - Constitutional Present: no acute distress, well nourished, well developed - Routine HEENT Exam Head: Present: normocephalic, atraumatic Eye: Present: EOMI ENT: Present: mucous membranes moist - Routine Respiratory Exam Present: CTA bilaterally. Absent: wheezes - Routine Cardiovascular Exam Present: RRR, S1, S2. Absent: murmur Comments: Sounds are distant - Routine Abdominal Exam Present: soft, normoactive bowel sounds, non distended. Absent: tenderness - Routine Extremities Exam Present: edema (2+ pitting bilateral), normal capillary refill - Routine Skin Exam Present: dry, warm - Routine Neurological Exam Present: alert, oriented X3, CN II-XII intact - Routine Lymphatic Exam Lymphatic: Absent: adenopathy - Routine Psychiatric Exam Present: normal affect, normal thought process Results - Labs CBC & Chem 7: 06/05/17 04:25 06/05/17 04:25 Labs: Laboratory Tests 06/03/17 06/04/17 06/05/17 04:31 04:25 04:25 Magnesium 1.5 L 1.7 1.8 Assessment and Plan (1) Severe sepsis Current visit: Yes Status: Acute (2) Febrile illness, acute Current visit: Yes Status: Acute (3) DM type 2 (diabetes mellitus, type 2) Current visit: Yes Status: Acute (4) COPD (chronic obstructive pulmonary disease) Current visit: No Status: Acute (5) Atrial fibrillation Current visit: No Status: Acute (6) Cardiomyopathy Problem details: EF30% Current visit: No Status: Acute Assessment and Plan: Assessment Severe sepsis Fever unknown origin Fatigue Headache Hypomagnesemia Normocytic anemia Paroxysmal atrial fibrillation-in sinus rhythm Diabetes mellitus, without complications, without insulin-A1c 9.3 on 04/29/17 Chronic systolic CHF/nonischemic cardiomyopathy-echocardiogram recently with ejection fraction 30% Hypertension, essential History of PE/DVT Obstructive sleep apnea-uses CPAP COPD DJD Depression Plan Patient's weight is up 6 pounds since admission. IV fluids were stopped yesterday, and Lasix 40 twice a day was resumed today. Metformin was restarted yesterday, blood sugars are reasonable. He continues on IV antibiotics. White count is stable. Etiology of fever is still unclear. Will check peripheral smear given his abnormalities on manual diff and consider CT chest/abdomen/pelvis. Repeat CBC in a.m. His calcium has steadily decreased from 9.0 on admission to 7.8 today. We will discuss further with attending and continue to follow. Sepsis Assessment - Evaluation Sepsis screening result: No Definite Risk Hospital Course Summary Disclaimer: The visit summary below is not to be considered part of the above Progress Note. Hospital Course: 06/03/17 -hospital admit day #1. Patient hospitalized with 10-14 day history of fever, nausea, headache, generalized weakness, and fatigue. Meets criteria for severe sepsis, lactic acid 3.1 on admission. Chest x-ray/UA unremarkable. Blood cultures obtained and empirically treated with vancomycin and aztreonam for sepsis of unknown origin. Additional studies being obtained including respiratory viral panel and panel for tick associated illnesses. Doxycycline added empirically. Home medications being continued for cardiac disease although Lasix and metformin remain on hold while patient is being hydrated. 06/04/17 -hospital day #2 check Monospot and [place] Nile screen given his overwhelming fatigue. Ross negative. Blood sugars not to goal. Will restart metformin in the morning as he is eating and drinking well. Restart Lasix 40 twice a day. IV fluids have been discontinued. Noted to be intermittently tachycardic up into the 120s. Reviewed telemetry - appears to be sinus tachycardia with occasional PVCs. No atrial fib noted. 06/05/17-hospital day #3 Patient's weight is up 6 pounds since admission. IV fluids were stopped yesterday, and Lasix 40 twice a day was resumed today. Metformin was restarted this a.m., blood sugars are reasonable. He continues on IV antibiotics. White count is stable. Etiology of fever is still unclear. Will check peripheral smear given his abnormalities on manual diff and consider CT chest/abdomen/pelvis. Repeat CBC in a.m. His calcium has steadily decreased from 9.0 on admission to 7.8 today. We will discuss further with attending and continue to follow. <Marina Bean - Last Filed: 06/05/17 16:16> Objective Vital signs: Temperature 99.1 F 06/05/17 07:51 Pulse Rate 101 H 06/05/17 12:35 Respiratory Rate 20 06/05/17 11:05 Blood Pressure 131/76 06/05/17 12:35 Pulse Oximetry 94 06/05/17 11:05 Oxygen Delivery Method Room Air Results - Labs CBC & Chem 7: 06/05/17 04:25 06/05/17 04:25 Assessment and Plan (1) Severe sepsis Current visit: Yes Status: Acute (2) Febrile illness, acute Current visit: Yes Status: Acute (3) DM type 2 (diabetes mellitus, type 2) Current visit: Yes Status: Acute (4) COPD (chronic obstructive pulmonary disease) Current visit: No Status: Acute (5) Atrial fibrillation Current visit: No Status: Acute (6) Cardiomyopathy Problem details: EF30% Current visit: No Status: Acute Assessment and Plan: I have independently evaluated and examined this patient. I reviewed the chart, the patient's history, and the [employer]/PA's documented findings as above. We discussed and formulated the assessment and plan as above with additions as below. The patient was seen at 3:45 PM The patient is resting quietly in bed with his CPAP in place. He reports he feels better except for he remains weak and occasionally short of breath. He does recall that he had a heart catheter that went through his right wrist area , he reports it became infected and drained pus for a short time before he became ill. In general, the patient is alert and oriented 3, cooperative with exam, and in no respiratory distress and morbidly obese. HEENT: Head is atraumatic, normocephalic no oral thrush, mucous membranes are moist and pink. Lungs: Clear to auscultation without wheezes, crackles or rhonchi CV: Tachycardia without murmur Abdomen: Soft, nontender, bowel sounds are present, there is no guarding no rebound. Morbidly obese, multiple areas of healing folliculitis. Back: He has a well-healed incision in his lumbar area there is no pain, tenderness, induration, fluctuance or redness. Extremities: No clubbing, no cyanosis, no edema. On his right wrist there is a small well healed pustule from his previous heart catheter site according to the patient. Skin: Warm and dry no sign of rash Neuro: Patient is alert Agree with the plan as outlined above. We'll discontinue the IV vancomycin and aztreonam tonight. We are awaiting a pathology review of the peripheral smear and have talked with the pathologist Dr. Marley at [facility]. His chest x- ray was visualized by me and shows no acute changes. We'll continue the doxycycline for possible tick borne illness. Have discussed with patient and his Hospital Course Summary Disclaimer: The visit summary below is not to be considered part of the above Progress Note.
[2017-06-05] MEDS ORDERED: MAGNESIUM OXIDE 400 MG TABLET PO SCH (11:00)
[2017-06-05] MEDS: RIVAROXABAN 20 MG TABLET PO SCH (16:54)
[2017-06-06] MEDS: ALBUTEROL/IPRATROPIUM 2.5mg-0.5mg/3ml NEB AEROSOL SCH ×2 (02:04→08:38)
[2017-06-06] MEDS: INSULIN ASPART 100unit/ml INJECTION SQ PRN (06:18)
[2017-06-06 07:28] VITALS: BP 121/64; PULSE 88; TEMP 96.7; O2SAT 94
[2017-06-06] MEDS: FUROSEMIDE 40 MG TABLET PO SCH (08:20)
[2017-06-06] MEDS: METFORMIN 500 MG TABLET PO SCH (08:20)
[2017-06-06] MEDS: CELECOXIB 200 MG CAPSULE PO SCH (08:20)
[2017-06-06] MEDS: CARVEDILOL 6.25 MG TABLET PO SCH (08:21)
[2017-06-06] MEDS: METHOCARBAMOL 750 MG TABLET PO SCH (08:21)
[2017-06-06] MEDS: DULOXETINE 60 MG CAPSULE PO SCH (08:21)
[2017-06-06] MEDS: LISINOPRIL 20 MG TABLET PO SCH (08:21)
[2017-06-06] MEDS: ASPIRIN *EC* 81 MG TABLET PO SCH (08:21)
--- NOTE | 2017-06-06 08:21 | Discharge Instructions ---
Discharge Plan - Med Rec/Dispo Referrals/Follow Up: Shukri Wiggins MD [Physician] - Matt Instructions: Fever in Adults (GEN), Sepsis (GEN) Additional Instructions: Resume potassium- recheck BMP Thursday. Follow up on serologies. Prescriptions: New Doxycycline [Vibramycin] 100 mg PO BIDWM #8 tablet Continue Ipratropium/Albuterol Sulfate [Combivent Respimat Inhal Fingal] 2 puff PO BID #0 inhaler Carvedilol [Coreg] 6.25 mg PO BIDWM rivaroxaban 20 mg tablet 20 mg PO DAILY 30 Days potassium chloride ER 20 mEq tablet,extended release(part/cryst) 20 meq PO BID 30 Days furosemide 40 mg tablet 40 mg PO BID 30 Days metformin 500 mg tablet 500 mg PO DAILY 30 Days lisinopril 20 mg tablet 20 mg PO DAILY 30 Days aspirin 81 mg tablet,delayed release 81 mg PO DAILY tab methocarbamol 750 mg tablet 750 mg PO DAILY 30 Days duloxetine 60 mg capsule,delayed release 60 mg PO DAILY 30 Days albuterol sulfate HFA 90 mcg/actuation aerosol inhaler 2 puff INH Q4H g linagliptin 5 mg tablet 5 mg PO DAILY tab budesonide-formoterol HFA 80 mcg-4.5 mcg/actuation aerosol inhaler 2 inh INH BID celecoxib 200 mg capsule 200 mg PO BID 30 Days Discontinued levofloxacin 500 mg tablet 500 mg PO Q24H 10 Days Discharge Instructions/Outpatient Orders: Final Provider Discharge Instructions Time Frame: 1 Week, Location: Determined By Patient - Disposition 01 Discharged Home, Self-Care
[2017-06-06 08:37] VITALS: RESP 14
--- NOTE | 2017-06-06 09:06 | Discharge Summary ---
Discharge Information Date of admission: 06/02/17 23:57 Anticipated date of discharge: 06/06/17 Attending Physician: Sabrina Hogue MD Primary care physician: HOLLY Anthony - Discharge Diagnosis Discharge Diagnosis: Severe sepsis Febrile illness presumably tick related-improved with doxycycline Hypokalemia mild-potassium restarted this morning Hypomagnesemia Normocytic anemia Paroxysmal atrial fibrillation in sinus rhythm Diabetes mellitus without complications without insulin A1c 9.3 in 04/29/2017 Chronic systolic CHF/nonischemic cardiomyopathyechocardiogram recently with ejection fraction 30% Hypertension, essential History of PE DVT Obstructive sleep apnea-uses CPAP COPD DJD Depression - Laboratory Labs: 06/06/17 05:15 06/06/17 05:15 His peripheral smear was reviewed by Dr. Juany Christianson and kinza Stovall and was thought to be consistent with infection. Microbiology 06/02/17 23:44 Peripheral/Iv Start Blood Culture - Preliminary No Growth After 3 Days 06/02/17 23:37 Peripheral/Iv Start Blood Culture - Preliminary No Growth After 3 Days Laboratory Tests 06/03/17 06/04/17 06/04/17 15:09 04:25 04:25 ESR 28 H Adenovirus (PCR) Negative A. phagocytophilum Cmmt Pending B.parapertussis DNA PCR Negative C. pneumoniae DNA (PCR) Negative Coronavirus OC43 (PCR) Negative Coronavirus HKU1 (PCR) Negative Coronavirus 229E (PCR) Negative Coronavirus NL63 (PCR) Negative E.chaffeensis DNA (PCR) Pending E. ewingii/canis (PCR) Pending E. muris-like DNA (PCR) Pending West Nile Virus IgG Ab West Nile Virus IgM Ab West Nile Interp Monoscreen Negative Human Metapneumovirus Negative Influenza Type A (PCR) Negative Influenza Type B (PCR) Negative M. pneumoniae (PCR) Negative Parainfluenza 1 (PCR) Negative Parainfluenza 2 (PCR) Negative Parainfluenza 3 (PCR) Negative Parainfluenza 4 (PCR) Negative RSV (PCR) Negative Entero/Rhino (PCR) Negative Rickettsia Ab (Spotted Pending [place] Antibody Pending 06/04/17 07:51 ESR Adenovirus (PCR) A. phagocytophilum Cmmt B.parapertussis DNA PCR C. pneumoniae DNA (PCR) Coronavirus OC43 (PCR) Coronavirus HKU1 (PCR) Coronavirus 229E (PCR) Coronavirus NL63 (PCR) E.chaffeensis DNA (PCR) E. ewingii/canis (PCR) E. muris-like DNA (PCR) West Nile Virus IgG Ab Pending West Nile Virus IgM Ab Pending West Nile Interp Pending Monoscreen Human Metapneumovirus Influenza Type A (PCR) Influenza Type B (PCR) M. pneumoniae (PCR) Parainfluenza 1 (PCR) Parainfluenza 2 (PCR) Parainfluenza 3 (PCR) Parainfluenza 4 (PCR) RSV (PCR) Entero/Rhino (PCR) Rickettsia Ab (Spotted [place] Antibody - Radiology Radiology: Chest x-ray 2 views upright PA and lateral on June 05 showed no acute cardiopulmonary disease History of Present Illness HPI: This is a 61 y/o male who has a history of DM 2 and COPD. The patient had onset this past of headache, fever, chills and sweats with weakness. He presented to his PCP office and referred to the ED where his workup was non specific. he was started on Levaquin and discharged back to home. Since the past 5 days the patient continues to be weak with intermittent headache , fever, chills and sweats. The patient has not improved with Levaquin therapy. The patient presents to the ED where he continues with a leukocytosis and now bandemia. The patient's LA is elevated. CXR is unremarkable for acute illness and his ROS would inform not much pulmonary complatins. The patient does describe some dysuria for the past 5 days but UA in the ED was mostly c/w contaminated urine. The patient denies any skin rashes or area of break down. The patient denies change in vision, no ear pain, no congestion, no sores in his mouth, no sore throat, The pateint has an occasional non productive cough. The pateint has nausea without emesis. He denies abdoemn pain, He has some constipation, He has no other signs of symptoms to give clue to his ongoing infectious process. Because of DINERO and fever he will be admitted and started on [employer] antibitoics. With his history of atrial fib he is anticoagulated? He is not a candidate for an immediate LP. see below. Objective Vital signs: Temperature 96.7 F L 08/05/17 07:26 Pulse Rate 88 06/06/17 07:26 Respiratory Rate 14 06/06/17 08:20 Blood Pressure 121/64 06/06/17 07:26 Pulse Oximetry 94 06/06/17 08:20 Oxygen Delivery Method Room Air Weight: 427 lb 11.148 oz - Additional findings Additional findings: In general, the patient is alert and oriented 3, cooperative with exam,obese and in no respiratory distress. HEENT: Head is atraumatic, normocephalic, mucous membranes are moist and pink. Lungs: Clear to auscultation without wheezes, crackles or rhonchi CV: Regular rate and rhythm without murmur Abdomen: Soft, nontender, bowel sounds are present, there is no guarding no rebound. morbidly obese Extremities: No clubbing, no cyanosis, no edema. Skin: Warm and dry no sign of rash Neuro: Patient is alert Hospital Course This is a general summary of the patient's hospital course. For more details refer to the complete medical record. Hospital course: 06/03/17 -hospital admit day #1. Patient hospitalized with 10-14 day history of fever, nausea, headache, generalized weakness, and fatigue. Meets criteria for severe sepsis, lactic acid 3.1 on admission. Chest x-ray/UA unremarkable. Blood cultures obtained and empirically treated with vancomycin and aztreonam for sepsis of unknown origin. Additional studies being obtained including respiratory viral panel and panel for tick associated illnesses. Doxycycline added empirically. Home medications being continued for cardiac disease although Lasix and metformin remain on hold while patient is being hydrated. 06/04/17 -hospital day #2 check Monospot and West Nile screen given his overwhelming fatigue. Monona negative. Blood sugars not to goal. Will restart metformin in the morning as he is eating and drinking well. Restart Lasix 40 twice a day. IV fluids have been discontinued. Noted to be intermittently tachycardic up into the 120s. Reviewed telemetry - appears to be sinus tachycardia with occasional PVCs. No atrial fib noted. 06/05/17-hospital day #3 Patient's weight is up 6 pounds since admission. IV fluids were stopped yesterday, and Lasix 40 twice a day was resumed today. Metformin was restarted this a.m., blood sugars are reasonable. He continues on IV antibiotics. White count is stable. Etiology of fever is still unclear. Will check peripheral smear given his abnormalities on manual diff and consider CT chest/abdomen/pelvis. Repeat CBC in a.m. His calcium has steadily decreased from 9.0 on admission to 7.8 today. We will discuss further with attending and continue to follow. The patient was admitted with a 10-14 day history of fever, nausea, headache, generalized weakness and fatigue. She did meet the criteria for severe sepsis with lactic acid of 3.1 on admission. She had previously been on levofloxacin which may have affected his culture results. Chest x-ray and UA were unremarkable, blood cultures remained negative. He was started on vancomycin and aztreonam which was discontinued on June 05. Because of persistent fatigue and he recalled history of tics in the backyard although no specific tick bites , he was started on oral doxycycline 100 mg by mouth every 12 hours and responded well to that. He'll be discharged home on doxycycline to complete a 7 day course. He still has the following serologies pending- Anaplasma, [place] spotted fever, tularemia. During his hospitalization he became intermittently tachycardic his, his carvedilol was restarted and he responded well to that. On the date prior to discharge he was restarted on his furosemide. On the day of discharge his potassium was 3.5 so he was given potassium chloride 20 mEq and resumed on his home dose of potassium post discharge. He will follow-up with Dr. Wiggins at the end of the week to follow-up on serologies and recheck his BMP. Discharge Plan - Med Rec/Dispo Referrals/Follow Up: Shukri Wiggins MD [Physician] - liban Instructions: Fever in Adults (GEN), Sepsis (GEN) Additional Instructions: Resume potassium- recheck BMP Thursday. Follow up on serologies. Prescriptions: New Doxycycline [Vibramycin] 100 mg PO BIDWM #8 tablet Continue Ipratropium/Albuterol Sulfate [Combivent Respimat Inhal [place]] 2 puff PO BID #0 inhaler Carvedilol [Coreg] 6.25 mg PO BIDWM rivaroxaban 20 mg tablet 20 mg PO DAILY 30 Days potassium chloride ER 20 mEq tablet,extended release(part/cryst) 20 meq PO BID 30 Days furosemide 40 mg tablet 40 mg PO BID 30 Days metformin 500 mg tablet 500 mg PO DAILY 30 Days lisinopril 20 mg tablet 20 mg PO DAILY 30 Days aspirin 81 mg tablet,delayed release 81 mg PO DAILY tab methocarbamol 750 mg tablet 750 mg PO DAILY 30 Days duloxetine 60 mg capsule,delayed release 60 mg PO DAILY 30 Days albuterol sulfate HFA 90 mcg/actuation aerosol inhaler 2 puff INH Q4H g linagliptin 5 mg tablet 5 mg PO DAILY tab budesonide-formoterol HFA 80 mcg-4.5 mcg/actuation aerosol inhaler 2 inh INH BID celecoxib 200 mg capsule 200 mg PO BID 30 Days Discontinued levofloxacin 500 mg tablet 500 mg PO Q24H 10 Days Discharge Instructions/Outpatient Orders: Final Provider Discharge Instructions Time Frame: 1 Week, Location: Determined By Patient
== END 2017-06-06 09:56 | disposition home or self-care (01) | DRG 872 ==
LOC: ED 21:30 → MED 23:57
PROVIDERS: ADMIT Emergency Medicine; ATTEND Internal Medicine